=== PATIENT | female | born 1975 | race Caucasian/White ===

== ENCOUNTER 2018-05-10 13:16 | Emergency (ER) | payer SELFPAY ==
[2018-05-10 13:38] VITALS: BP 121/85; PULSE 99; O2SAT 98
[2018-05-10] MEDS ORDERED: TORAdol 30 mg Injection IM ONE (14:07)
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
[2018-05-10] MEDS ORDERED: TORAdol 30 mg Injection ONE (14:22)
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
== END 2018-05-10 15:33 | disposition home or self-care (01) ==
LOC: ED 13:16
DX: S16.1XXA Strain of muscle, fascia and tendon at neck level, initial encounter (principal); S43.402A Unspecified sprain of left shoulder joint, initial encounter; S29.011A Strain of muscle and tendon of front wall of thorax, initial encounter; V53.5XXA Driver of pick-up truck or van injured in collision with car, pick-up truck or van in traffic accident, initial encounter; M54.2 Cervicalgia; O66.0 Obstructed labor due to shoulder dystocia; R07.89 Other chest pain; Z79.899 Other long term (current) drug therapy
CPT/HCPCS: 71046; 72040; 73030; 96372; 99284; J1885; L0172